=== PATIENT | female | born 1985 | race Caucasian/White ===

== ENCOUNTER 2016-05-05 12:20 | Inpatient (IN) | payer OTHER ==
[~2016-05-05] VITALS: Ht 167.6 cm; Wt 89.1 kg
[2016-05-05 12:45] VITALS: BP 124/82
[2016-05-05] MEDS ORDERED: PREN1TAB80 PO (12:54)
[2016-05-05] MEDS ORDERED: RINGERS SOLUTION,LACTATED 1,000 ML IV ONE (14:39)
[2016-05-05] MEDS ORDERED: OXYTOCIN 30 UNITS/LACT RINGERS 500 ML IV ONE (14:57)
[2016-05-05] MEDS ORDERED: RINGERS SOLUTION,LACTATED 1,000 ML IV PRN (14:57)
[2016-05-05] MEDS ORDERED: METHYLERGONOVINE MALEATE 0.2 MG/ML VIAL IM PRN (15:00)
[2016-05-05] MEDS ORDERED: AMPICILLIN SODIUM 2 GM/NS 100 ML IV ONE (15:00)
[2016-05-05] MEDS ORDERED: CITRIC ACID/SODIUM CITRATE 30 ML SOLUTION UDCUP PO PRN (15:00)
[2016-05-05] MEDS ORDERED: LIDOCAINE HCL/PF 1% 30 ML VIAL INJ PRN (15:00)
[2016-05-05] MEDS ORDERED: METOCLOPRAMIDE HCL 5 MG/ML 2 ML VIAL IVP PRN (15:00)
[2016-05-05] MEDS ORDERED: FentaNYL CITRATE-PF 100 MCG/2 ML VIAL IVP PRN (15:00)
[2016-05-05 15:29] LABS: BASOPHILS # (AUTO) 0.03 K/uL (0.00-0.20); BASOPHILS % (AUTO) 0.2 % (0.0-2.0); EOSINOPHILS # (AUTO) 0.07 K/uL (0.00-0.70); HEMATOCRIT 31.4 % (36-46); HEMOGLOBIN 9.8 g/dL (12.0-16.0); LYMPHOCYTES # (AUTO) 2.7 K/uL (1.0-4.8); LYMPHOCYTES % (AUTO) 19.7 % (22.0-44.0); MEAN CORPUSCULAR HEMOGLOBIN 22.1 pg (26.0-34.0); MEAN CORPUSCULAR HGB CONC 31.1 G/dL (31.0-37.0); MEAN CORPUSCULAR VOLUME 71 fL (80-100); MONOCYTES # (AUTO) 0.8 K/uL (0.1-1.0); MONOCYTES % (AUTO) 5.8 % (2.0-9.0); NEUTROPHILS # (AUTO) 10.2 K/uL (1.8-7.7); NEUTROPHILS % (AUTO) 73.7 % (40.0-70.0); RED BLOOD CELL COUNT(AUTO) 4.41 MIL/uL (4.00-5.20); RED CELL DISTRIBUTION WIDTH 26.4 % (11.5-14.5); WHITE BLOOD COUNT (AUTO) 13.8 K/uL (4.5-11.0)
[2016-05-05] MEDS ORDERED: OXYTOCIN 30 UNITS/LACT RINGERS 500 ML IV PRN (15:47)
[2016-05-05] MEDS: RINGERS SOLUTION,LACTATED 1,000 ML IV SCH ×2 (15:49→22:33)
[2016-05-05 15:55] LABS: RBC MORPHOLOGY COMMENT ABNORMAL RBC MORPH
[2016-05-05] MEDS: AMPICILLIN SODIUM 1 GM/NS 50 ML IV SCH ×2 (19:00→23:06)
[2016-05-05] MEDS ORDERED: OXYGEN THERAPY IH SCH (20:00)
[2016-05-06] MEDS: MISOPROSTOL 25 MCG TABLET VG SCH ×2 (00:11→04:21)
[2016-05-06] MEDS ORDERED: RANI150T7 PO (00:37)
[2016-05-06] MEDS ORDERED: PREN1TAB25 PO (00:37)
[2016-05-06] MEDS ORDERED: DSS100 PO (00:37)
[2016-05-06] MEDS ORDERED: FERR-89 PO (00:37)
[2016-05-06 02:02] LABS: ALANINE AMINOTRANSFERASE 12 U/L (12-78); ALBUMIN 2.1 g/dL (3.4-5.0); ANION GAP 8 mmol/L (8-16); ASPARTATE AMINOTRANSFERASE 19 U/L (15-37); BILIRUBIN,TOTAL 0.7 mg/dL (0.1-1.0); CALCIUM, TOTAL 8.1 mg/dL (8.8-10.5); CARBON DIOXIDE 25 mmol/L (22-29); CHLORIDE 104 mmol/L (98-107); CREATININE 0.53 mg/dL (0.60-1.30); GLOMERULAR FILTR. RATE CALC > 60 mL/min (>60); POTASSIUM 3.4 mmol/L (3.5-5.1); SODIUM SERUM 137 mmol/L (136-145); TOTAL PROTEIN, SERUM 6.5 g/dL (6.4-8.2); UREA NITROGEN, BLOOD 4 mg/dL (7-18); URIC ACID 3.9 mg/dL (2.6-7.2)
[2016-05-06] MEDS: AMPICILLIN SODIUM 1 GM/NS 50 ML IV SCH ×3 (03:03→11:19)
[2016-05-06] MEDS: RINGERS SOLUTION,LACTATED 1,000 ML IV SCH ×2 (07:48→13:46)
[2016-05-06] MEDS ORDERED: FentaNYL CITRATE-PF 100 MCG/2 ML VIAL ONE (13:04)
[2016-05-06] MEDS ORDERED: ROPIVACAINE HCL 0.2% 100 ML ED ONE (13:04)
[2016-05-06] MEDS ORDERED: ONDANSETRON HCL 4 MG/2 ML VIAL IVP PRN (14:00)
[2016-05-06] MEDS ORDERED: DiphenhydrAMINE HCL 50 MG/ML VIAL IVP PRN (14:00)
[2016-05-06] MEDS ORDERED: ROPIVACAINE HCL 0.2% ED PRN (14:00)
[2016-05-06] MEDS ORDERED: NALBUPHINE HCL 10 MG/ML VIAL IVP PRN (14:00)
[2016-05-06] MEDS ORDERED: FENTANYL CITRATE ED PRN (14:00)
[2016-05-06] MEDS ORDERED: LANOLIN 7 GM OINTMENT TP PRN (15:15)
[2016-05-06] MEDS ORDERED: IBUPROFEN 600 MG TABLET PO PRN (15:15)
[2016-05-06] MEDS ORDERED: GLYCERIN/WITCH HAZEL LEAF 40 PADS JAR TP PRN (15:15)
[2016-05-06] MEDS ORDERED: BENZOCAINE 20%/MENTHOL 56 GM SPRAY CANISTER TP PRN (15:15)
[2016-05-06] MEDS ORDERED: ACETAMINOPHEN/CODEINE 300-30 MG TABLET PO PRN ×2 (15:15)
[2016-05-06] MEDS ORDERED: METHYLERGONOVINE MALEATE 0.2 MG/ML VIAL IVP ONE (18:45)
[2016-05-06] MEDS ORDERED: METHYLERGONOVINE MALEATE 0.2 MG/ML VIAL IM ONE (19:00)
[2016-05-06] MEDS ORDERED: OXYTOCIN 20 UNITS in DEXTROSE 5%-LACTATED RINGERS 1,000 ML IV ONE (19:15)
[2016-05-06] MEDS ORDERED: MISOPROSTOL 100 MCG TABLET PR ONE (19:15)
[2016-05-06] MEDS: MAGNESIUM HYDROXIDE SUSPENSION 30 ML UDCUP PO SCH (20:44)
[2016-05-06] MEDS: SENNA/DOCUSATE SODIUM 187-50 MG TABLET PO SCH (20:44)
[2016-05-07] MEDS: METHYLERGONOVINE MALEATE 0.2 MG TABLET PO SCH ×3 (00:25→13:36)
[2016-05-07 07:25] LABS: BASOPHILS # (AUTO) 0.03 K/uL (0.00-0.20); BASOPHILS % (AUTO) 0.3 % (0.0-2.0); EOSINOPHILS # (AUTO) 0.02 K/uL (0.00-0.70); HEMATOCRIT 24.3 % (36-46); HEMOGLOBIN 7.5 g/dL (12.0-16.0); LYMPHOCYTES # (AUTO) 2.3 K/uL (1.0-4.8); LYMPHOCYTES % (AUTO) 19.1 % (22.0-44.0); MEAN CORPUSCULAR HEMOGLOBIN 22.1 pg (26.0-34.0); MEAN CORPUSCULAR HGB CONC 30.7 G/dL (31.0-37.0); MEAN CORPUSCULAR VOLUME 72 fL (80-100); MONOCYTES # (AUTO) 0.7 K/uL (0.1-1.0); MONOCYTES % (AUTO) 5.6 % (2.0-9.0); NEUTROPHILS # (AUTO) 9.1 K/uL (1.8-7.7); NEUTROPHILS % (AUTO) 74.8 % (40.0-70.0); RED BLOOD CELL COUNT(AUTO) 3.37 MIL/uL (4.00-5.20); RED CELL DISTRIBUTION WIDTH 26.6 % (11.5-14.5); WHITE BLOOD COUNT (AUTO) 12.2 K/uL (4.5-11.0)
[2016-05-07] MEDS: SENNA/DOCUSATE SODIUM 187-50 MG TABLET PO SCH (09:51)
[2016-05-07] MEDS: MAGNESIUM HYDROXIDE SUSPENSION 30 ML UDCUP PO SCH (09:51)
[2016-05-07 12:54] LABS: RBC MORPHOLOGY COMMENT DIMORPHIC RBC
[2016-05-07 16:25] LABS: BASOPHILS % (AUTO) 0.6 % (0.0-2.0); EOSINOPHILS % (AUTO) 0.4 % (1.0-6.0); HEMATOCRIT 26.1 % (36-46); HEMOGLOBIN 7.9 g/dL (12.0-16.0); LYMPHOCYTES # (AUTO) 3.1 K/uL (1.0-4.8); LYMPHOCYTES % (AUTO) 26.6 % (22.0-44.0); MEAN CORPUSCULAR HEMOGLOBIN 21.9 pg (26.0-34.0); MEAN CORPUSCULAR HGB CONC 30.3 G/dL (31.0-37.0); MEAN CORPUSCULAR VOLUME 72 fL (80-100); MONOCYTES # (AUTO) 0.8 K/uL (0.1-1.0); MONOCYTES % (AUTO) 7.2 % (2.0-9.0); NEUTROPHILS # (AUTO) 7.6 K/uL (1.8-7.7); NEUTROPHILS % (AUTO) 65.2 % (40.0-70.0); RED CELL DISTRIBUTION WIDTH 26.1 % (11.5-14.5); WHITE BLOOD COUNT (AUTO) 11.7 K/uL (4.5-11.0)
[2016-05-07 16:48] LABS: RBC MORPHOLOGY COMMENT DIMORPHIC RBC
[2016-05-07] MEDS ORDERED: IBUP-2070 PO (17:25)
== END 2016-05-07 18:35 | disposition home or self-care (01) | DRG 560 ==
LOC: 4S 12:20 → OBSVTOIN 12:20
PROVIDERS: ADMIT Obstetrics & Gynecology; ATTEND Obstetrics & Gynecology
PROC: 3E0S3CZ (ICD-10-PCS; principal; 2016-05-05)
PROC: 10D07Z6 Extraction of Products of Conception, Vacuum, Via Natural or Artificial Opening (ICD-10-PCS; 2016-05-05)
PROC: 0UQMXZZ Repair Vulva, External Approach (ICD-10-PCS; 2016-05-05)
PROC: 00HU33Z Insertion of Infusion Device into Spinal Canal, Percutaneous Approach (ICD-10-PCS; 2016-05-05)
PROC: 10907ZC Drainage of Amniotic Fluid, Therapeutic from Products of Conception, Via Natural or Artificial Opening (ICD-10-PCS; 2016-05-05)
DX: O66.0 Obstructed labor due to shoulder dystocia (principal); O41.03X0 Oligohydramnios, third trimester, not applicable or unspecified; O69.81X0 Labor and delivery complicated by cord around neck, without compression, not applicable or unspecified; O76 Abnormality in fetal heart rate and rhythm complicating labor and delivery; O99.824 Streptococcus B carrier state complicating childbirth; O75.81 Maternal exhaustion complicating labor and delivery; O71.82 Other specified trauma to perineum and vulva; Z64.1 Problems related to multiparity; Z3A.39 39 weeks gestation of pregnancy; Z37.0 Single live birth
CPT/HCPCS: 76811; 84550; 86850; 86900; 86901; J0290; J2210; J2590; J2795; J3010; J7120